=== PATIENT | male | born 1935 | race Caucasian/White ===

== ENCOUNTER 2018-01-26 12:41 | Emergency (ER) | payer OTHER ==
[~2018-01-26] VITALS: Ht 167.6 cm; Wt 52.2 kg
--- NOTE | ~2018-01-26 | EKG ---
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
[2018-01-26 13:54] LABS: URINE BILIRUBIN NEGATIVE (Negative); URINE BLOOD NEGATIVE (Negative); URINE CLARITY CLEAR; URINE COLOR YELLOW; URINE GLUCOSE-RANDOM* NEGATIVE (Negative); URINE KETONES NEGATIVE (Negative); URINE LEUKOCYTES-REFLEX 2+ (Negative); URINE NITRITE-REFLEX NEGATIVE (Negative); URINE PROTEIN (DIPSTICK) 1+ (Negative); URINE UROBILINOGEN 0.2 E.U./dl (0.2-1.0)
[2018-01-26 14:15] LABS: SQUAMOUS 0-3 Few /LPF (0-3)
[2018-01-26 14:16] LABS: BACTERIA-REFLEX None Seen /HPF (None Seen); CASTS None Seen /LPF (None Seen); CRYSTALS None Seen /LPF (None Seen); URINE RBC 3-10 Few /HPF (0-2); URINE WBC-REFLEX >25 Many /HPF (0-5); WBC CLUMPS Moderate (None Seen)
[2018-01-26 14:22] LABS: BASOPHILS 0.9 % (0.0-2.0); EOSINOPHILS 2.5 % (0.0-3.0); HEMATOCRIT 32.9 % (42.0-52.0); HEMOGLOBIN 10.9 gm/dL (14.0-18.0); LYMPHOCYTES 7.1 % (24.0-44.0); MCH 28.5 pg (26.0-34.0); MCHC 33.1 g/dL (28.0-37.0); MONOCYTES 10.4 % (1.0-8.0); PLATELET COUNT 210 thou/uL (150-400); POLYS 79.1 % (36.0-66.0); RBC 3.83 mil/uL (4.50-6.00); RDW 18.6 % (10.5-14.5); WBC 8.9 thou/uL (4.0-11.0)
[2018-01-26 14:26] LABS: ANION GAP 7 mmol/L (7-16); BUN 35 mg/dL (7-18); CALCIUM 9.8 mg/dL (8.5-10.1); CHLORIDE 99 mmol/L (98-107); CO2 25 mmol/L (21-32); CREATININE 1.5 mg/dL (0.7-1.3); GLUCOSE 98 mg/dL (74-106); POTASSIUM 4.6 mmol/L (3.5-5.1); SODIUM 131 mmol/L (136-145)
[2018-01-26 14:36] LABS: ALBUMIN 3.6 g/dL (3.4-5.0); LIPASE 124 U/L (73-393); SGOT 29 U/L (15-37); SGPT 28 U/L (30-65); TOTAL BILIRUBIN 0.6 mg/dL (<0.1-1.0); TOTAL PROTEIN 7.8 g/dL (6.4-8.2); TROPONIN-I <0.06 ng/mL (<0.06)
[2018-01-26 14:41] LABS: ANISOCYTOSIS 1+
[2018-01-26 14:42] LABS: POIKILOCYTOSIS SLIGHT
[2018-01-26] MEDS ORDERED: KEFLEX500 M1 PO (16:20)
[2018-01-26 16:53] VITALS: BP 147/74
== END 2018-01-26 17:00 | disposition home or self-care (01) ==
LOC: ER 12:41
PROVIDERS: Physician Assistant
DX: N39.0 Urinary tract infection, site not specified (principal); I48.91 Unspecified atrial fibrillation; R53.1 Weakness; Z88.5 Allergy status to narcotic agent; Z88.8 Allergy status to other drugs, medicaments and biological substances

== ENCOUNTER 2018-02-23 11:17 | Inpatient (IN) | payer OTHER ==
[~2018-02-23] VITALS: Ht 177.8 cm; Wt 68.9 kg
--- NOTE | ~2018-02-23 | EKG ---
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
[2018-02-23 11:17] VITALS: BP 130/85
[~2018-02-23 11:17] MED LIST: KEFLEX500 M1 PO
[2018-02-23 11:32] LABS: URINE BILIRUBIN NEGATIVE (Negative); URINE BLOOD NEGATIVE (Negative); URINE CLARITY CLEAR; URINE COLOR YELLOW; URINE GLUCOSE-RANDOM* NEGATIVE (Negative); URINE KETONES NEGATIVE (Negative); URINE LEUKOCYTES TRACE (Negative); URINE NITRITE NEGATIVE (Negative); URINE PROTEIN (DIPSTICK) TRACE (Negative); URINE UROBILINOGEN 0.2 E.U./dl (0.2-1.0)
[2018-02-23 11:47] LABS: ABSOLUTE NEUTROPHILS 7.1 thou/uL (1.4-8.2); BASOPHILS 1.2 % (0.0-2.0); EOSINOPHILS 1.9 % (0.0-3.0); HEMATOCRIT 29.7 % (42.0-52.0); HEMOGLOBIN 9.8 gm/dL (14.0-18.0); LYMPHOCYTES 5.5 % (24.0-44.0); MCH 27.4 pg (26.0-34.0); MCHC 32.9 g/dL (28.0-37.0); MCV 83.4 fL (80.0-100.0); MONOCYTES 8.3 % (1.0-8.0); PLATELET COUNT 238 thou/uL (150-400); POLYS 83.1 % (36.0-66.0); RBC 3.57 mil/uL (4.50-6.00); RDW 18.2 % (10.5-14.5); WBC 8.6 thou/uL (4.0-11.0)
[2018-02-23 11:55] LABS: ANION GAP 12 mmol/L (7-16); BUN 42 mg/dL (7-18); CALCIUM 9.1 mg/dL (8.5-10.1); CHLORIDE 98 mmol/L (98-107); CO2 21 mmol/L (21-32); CREATININE 1.7 mg/dL (0.7-1.3); GLUCOSE 93 mg/dL (74-106); POTASSIUM 3.9 mmol/L (3.5-5.1); SODIUM 131 mmol/L (136-145)
[2018-02-23 12:03] LABS: ALBUMIN 3.2 g/dL (3.4-5.0); SGOT 27 U/L (15-37); SGPT 33 U/L (30-65); TOTAL BILIRUBIN 0.4 mg/dL (<0.1-1.0); TOTAL PROTEIN 7.1 g/dL (6.4-8.2); TROPONIN-I <0.06 ng/mL (<0.06)
[2018-02-23 12:20] LABS: ANISOCYTOSIS 2+; OVALOCYTES FEW
[2018-02-23 14:39] VITALS: BP 150/73
[2018-02-23] MEDS ORDERED: FLOMAX0.4 MG PO (15:05)
[2018-02-23] MEDS ORDERED: SPIRONOLACTONE25 M1 PO (15:05)
[2018-02-23] MEDS ORDERED: HYDROXYZINE HCL10 M1 PO (15:05)
[2018-02-23] MEDS ORDERED: AMLODIPINE BESY10 MG PO (15:06)
[2018-02-23] MEDS ORDERED: SYNTHROID75 MCG PO (15:06)
[2018-02-23] MEDS ORDERED: PROSCAR 5MG TABL5 MG PO (15:07)
[2018-02-23] MEDS ORDERED: LASIX 80 MG TAB80 MG PO (15:07)
[2018-02-23] MEDS ORDERED: HYDRALAZINE 5050 MG PO (15:09)
[2018-02-23] MEDS ORDERED: COLACE100 MG PO (15:10)
[2018-02-23] MEDS ORDERED: IRON325 PO (15:10)
[2018-02-23 15:16] VITALS: BP 150/73
[2018-02-23] MEDS ORDERED: MAGOX 400400 MG PO (15:16)
[2018-02-23] MEDS ORDERED: PROTONIX40 M1 PO (15:16)
[2018-02-23 15:30] VITALS: BP 167/70
[2018-02-23] MEDS ORDERED: PROZAC 20 MG20 MG PO (16:37)
[2018-02-23 19:58] VITALS: BP 159/72
[2018-02-24 04:49] VITALS: BP 160/68
[2018-02-24 07:50] VITALS: BP 149/64
[2018-02-24 10:00] LABS: CALCIUM 9.4 mg/dL (8.5-10.1); CREATININE 1.6 mg/dL (0.7-1.3); POTASSIUM 4.6 mmol/L (3.5-5.1)
== END 2018-02-24 16:26 | DRG 682 ==
LOC: ER 11:17 → 4E 14:33 → EROBS 14:33 → 4E 15:18
PROVIDERS: Family Medicine; Physician Assistant
DX: N17.9 Acute kidney failure, unspecified (principal); G93.41 Metabolic encephalopathy; N39.0 Urinary tract infection, site not specified; E87.1 Hypo-osmolality and hyponatremia; E46 Unspecified protein-calorie malnutrition; I13.0 Hypertensive heart and chronic kidney disease with heart failure and stage 1 through stage 4 chronic kidney disease, or unspecified chronic kidney disease; I48.91 Unspecified atrial fibrillation; F32.9 Major depressive disorder, single episode, unspecified; N18.9 Chronic kidney disease, unspecified; M19.90 Unspecified osteoarthritis, unspecified site; D64.9 Anemia, unspecified; I50.9 Heart failure, unspecified; Z96.652 Presence of left artificial knee joint; Z96.643 Presence of artificial hip joint, bilateral; Z68.21 Body mass index [BMI] 21.0-21.9, adult; Z88.6 Allergy status to analgesic agent; Z88.8 Allergy status to other drugs, medicaments and biological substances; Z86.73 Personal history of transient ischemic attack (TIA), and cerebral infarction without residual deficits; Z87.01 Personal history of pneumonia (recurrent)
CPT/HCPCS: 10183

== ENCOUNTER 2018-02-24 11:15 | Inpatient (IN) | payer OTHER ==
[~2018-02-24] VITALS: Ht 182.9 cm; Wt 64.5 kg
--- NOTE | ~2018-02-24 | PLAN ---
[facility] [place] [address] REHAB UNIT PLAN OF CARE Name: SUNG BELL Room #: 509-P ADM IN M.R.#: [id number] Admission: 02/24/18 Attend Phys: Aron Westfall MD Discharge: Date of : 36 Report #: [id number] THIS REPORT FOR: //name// CC: Aron Westfall [facility] physician/PCP DATE OF SERVICE: 02/26/2018 PROGRESS NOTE/OVERALL PLAN OF CARE SUBJECTIVE: The patient is seen back today in followup. He had some problems with being more agitated yesterday morning and was more lethargic. He was given some IV fluids and had modification to his medication regimen with holding the diuretics, decreasing his Lasix dose, stopping the hydroxyzine 10 mg and changing to 5 mg as needed. The patient did miss some therapy yesterday on 02/25/2018 secondary to his episode of agitation. This morning, he is doing better. No obvious distress. Last recorded temperature 98.4, pulse 46, respirations 18, blood pressure 145/73. Facies appeared symmetric. Transfers are min assist. He is ambulating 50 feet mod assist with a front-wheeled walker. He has mild comprehensive deficits, speech therapy. He does have moderate cognitive deficits with xfolpybc-pc-yitwlg memory deficits. ASSESSMENT: 1. Metabolic encephalopathy. 2. Gait instability. 3. Acute renal failure. 4. Bradycardia. 5. Recent urinary tract infection, now resolved. 6. History of congestive heart failure. 7. History of hemorrhagic cerebrovascular accident, July 2017. 8. Hyponatremia. 9. Protein-calorie malnutrition. 10. Degenerative arthritis. PLAN: The overall plan of care is based on the preadmission screen, post-admission physician evaluation and information garnered from therapy assessments. 1. Estimated length of stay is going to be probably at least 7-14 days. 2. Medical prognosis is reasonably good. 3. Anticipated interventions includes the interdisciplinary acute inpatient rehabilitation program with PT, OT and speech, rehabilitation nursing assisting regarding medication management, skin care prophylaxis, bowel and bladder issues and nursing education. The healthcare network consultant physician/primary physician is involved as well as the interdisciplinary rehabilitation team. 4. Anticipated functional outcomes would be for the patient to become modified independent with transfers, mobility, ADLs, cognition, [place], [place] [address] REHAB UNIT PLAN OF CARE Name: SUNG BELL Room #: 509-P [facility] IN .R.#: [id number] Admission: 02/24/18 Attend Phys: Aron Westfall MD Discharge: Date of : 36 Report #: [id number] that he can hopefully return back to his prior living situation. 5. Discharge destination is back to the home setting where he lives with his . 6. Expected therapy by discipline includes PT, OT and speech 1 hour per day each five days a week throughout the duration of the acute inpatient rehabilitation stay. <ELECTRONICALLY SIGNED> By: Aron Westfall MD 02/26/18 1653 0844 1201 Aron Westfall MD /SIXTO
--- NOTE | ~2018-02-24 | H ---
[facility] [place] [address] HISTORY AND PHYSICAL Name: SUNG BELL Room #: 509-P ADM IN M.R.#: [id number] Admission: 02/24/18 Attend Phys: Aron Westfall MD Discharge: Date of : 36 Report #: [id number] THIS REPORT FOR: //name// CC: Aron Westfall [facility] physician/PCP DATE OF SERVICE: 02/24/2018 HISTORY OF PRESENT ILLNESS: This is an 82-year-old gentleman who presented to the Emergency Department with his for altered mental status and inability to ambulate from chair along with associated weakness. He was found to have acute on chronic kidney disease, recurrent UTI, encephalopathy, metabolic. He was evaluated by Therapy and recommendations for continued rehabilitation, for which he has now been admitted to acute inpatient rehabilitation for further functional mobility improvements prior to returning back home with his . This morning, the patient again had an episode of being unable to wake up in the morning and very lethargic. He seemed aggravated with staff attempts to arouse, and he did become argumentative and aggressive towards staff once he did wake up. He was given an IV fluid bolus later this morning, for which he responded well and was much more awake and alert after the bolus. He denies pain, shortness of air, cough, nausea or constipation. PAST MEDICAL HISTORY: Hemorrhagic CVA in 07/2017 at [facility]. After his stroke, he was at another inpatient rehab, then skilled facility. He was back in the hospital after that with a CHF exacerbation, respiratory failure. He was at home for one month prior to this hospital stay. History of a right lower extremity vascular procedure, left knee replacement, bilateral hip replacements, degenerative joint disease, history of AFib, kyphoplasty in 01/2018. Hypertension, depression, pneumonia. HABITS: Nonsmoker, no drug use, no alcohol use. SOCIAL HISTORY: He lives at home, lives in a house with his . 2 entry stairs, 0 stairs once inside. Utilizes a front wheel walker in the home. He does have a lift chair at home. Premorbidly, he was independent for ADLs. His assists with setup and when needs help. His provides all the IADLs in the home, and she does the driving. She works 3 days a week, and he is at home alone during that time. He has a high fear of falling and does very little when he has no supervision, he reports. ALLERGIES: MORPHINE, CODEINE, HYDROCODONE, SIMVASTATIN. MEDICATIONS: Lasix 80 mg daily, hydroxyzine 10 mg t.i.d. p.r.n., Aldactone 25 mg daily, Prozac 20 mg daily, finasteride 5 mg daily, Colace 100 mg daily, Norvasc 10 mg daily, Protonix 40 mg daily, Synthroid 75 mcg daily, hydralazine [address] [address] HISTORY AND PHYSICAL Name: SUNG BELL Room #: 509-P [facility] IN M.R.#: [id number] Admission: 02/24/18 Attend Phys: Aron Westfall MD Discharge: Date of : 36 Report #: [id number] 50 mg t.i.d., Flomax 0.4 mg at bedtime, iron 325 twice a day, senna 1 mg daily as needed, milk of mag daily as needed, bisacodyl suppositories daily as needed. REVIEW OF SYSTEMS: Remainder of his 12-point review of systems is negative except as listed in HPI. PHYSICAL EXAMINATION: VITAL SIGNS: Blood pressure 164/76, pulse of 44, temperature 98.1, respirations 18, 96% oxygen sat on room air. GENERAL: When I first visited this morning, he was asleep, not waking to verbal or tactile stimuli. Approximately one hour later, I reexamined. The patient was awake. He is oriented to person. He is confused on date and situation. He was cooperative with my exam and follow direction inappropriately. HEENT: Head is normocephalic. Eyes: EOMs are intact. LUNGS: Clear to auscultation. No crackle, no wheeze. CARDIOVASCULAR: S1, S2. ABDOMEN: Bowel sounds are positive. Soft, nontender, nondistended. GENITOURINARY: Deferred. EXTREMITIES: No edema. He has an old healed scar to the right lower extremity from a previous vascular surgery. Functional range of motion in bilateral upper and lower extremities. He has good optical laboratory mechanic strength bilaterally. He does have some significant arthritic changes in bilateral hands, left worse than right. No pronator drift. No clonus. Able to lift lower extremities both antigravity. Negative Homans sign. Sit to stand, mod assist, max assist to ambulate 75 feet with a walker. Bed mobility, min assist, toilet transfers, mod assist. Mod assist for lower extremity dressing. NEUROLOGIC: Mild to moderate cognitive deficits, moderate memory deficits, mild expression and comprehension deficits. SKIN: Dry all over, some flushing in his cheeks. LABORATORY DATA: EKG from 02/25 shows AFib with a right bundle branch block, heart rate 44. Blood cultures from today negative. 02/25, WBC 7.9, hemoglobin 10.12, hematocrit 29.9, platelets 227. Sodium 130, potassium 4.3, BUN 30, creatinine 1.5, glucose 84, calcium 9.2. ASSESSMENT: 1. Metabolic encephalopathy. 2. Gait instability. 3. Acute renal failure. 4. Bradycardia. 5. Recent urinary tract infection, now resolved. 6. History of congestive heart failure. 7. History of hemorrhagic cerebrovascular accident, 07/2017. 8. Hyponatremia. 9. Protein calorie malnutrition. 10. Degenerative joint disease. [facility] [address] [place] [address] HISTORY AND PHYSICAL Name: SUNG BELL Room #: 509-P [facility] IN [facility]#: [id number] Admission: 02/24/18 Attend Phys: Aron Westfall MD Discharge: Date of : 36 Report #: [id number] The patient has been admitted to inpatient rehab for physical, occupational and speech therapies. His mentation seems to be waxing and waning. I wonder if he has an underlying component of dementia that has not been diagnosed at this time. does seem in denial to his cognitive deficits. I called and discussed with his primary, Dr. Hayden. PLAN OF CARE: I recommend stopping the 10 mg hydroxyzine and changing to 5 mg at bedtime as needed, also to hold his diuretics for today and lower his Lasix dose from 80 to 40 mg. Repeat BMP in the morning. He does have significant bradycardia. Cardiology consult may be warranted soon. We will defer to primary recommendations with consideration for possible pacemaker in the future. He will also have a neuropsychology testing done while he is here. By: 1453 1549 GLORIA Esquivel /nt
--- NOTE | ~2018-02-24 | EKG ---
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 : 1935 Requested By: Odalys Gar Order Number: [id number] MD: Jluis Norwood Measurements Intervals [place] Rate: 44 P: DC: QRS: 40 QRSD: 167 T: 0 QT: 571 QTc: 489 Interpretive Statements Atrial fibrillation Right bundle branch block Compared to ECG 02/23/2018 11:52:34 No significant changes Electronically Signed On 02-25-2018 16:55:29 CDT by Jluis Norwood [email or web address] <ELECTRONICALLY SIGNED> By: Jluis Norwood MD, [facility] 02/25/18 1655 1141 1141 Jluis Norwood MD, [facility] /EPI
--- NOTE | ~2018-02-24 | H ---
[facility] [place] [address] HISTORY AND PHYSICAL Name: ARABELLASUNG Alejandra Room #: 509-P ADM IN M.R.#: [id number] Admission: 02/24/18 Attend Phys: Aron Westfall MD Discharge: Date of : 36 Report #: [id number] THIS REPORT FOR: //name// CC: Aron Westfall [facility] physician/PCP DATE OF SERVICE: 02/24/2018 HISTORY AND PHYSICAL/POSTADMISSION PHYSICIAN EVALUATION HISTORY OF PRESENT ILLNESS: The patient is an 82-year-old male originally admitted to [facility] for acute confusion, was thought to have had a suspected UTI. He has a complicated history. He had a prior hemorrhagic CVA in 07/2017, treated at [facility]. Premorbid front-wheeled walker ambulator with a lift chair. He is admitted for acute in-hospital inpatient rehabilitation with metabolic encephalopathy. This morning, he was noted to be more somnolent and changes have been made to his hydroxyzine dosing as well as decreasing his Lasix. He also was noted to have some bradycardia, currently being monitored with his primary care physician involved, Dr. Hayden. Please see the history and physical dictation as per Odalys Gar, nurse practitioner. I agree with the above. PAST MEDICAL HISTORY: See Odalys Gar's note. SOCIAL HISTORY: He lives in a house with his . Otherwise, see Odalys Gar's note. HABITS: Nonsmoker. No history of alcohol abuse. Otherwise, see Odalys Gar's note. ALLERGIES: CODEINE, HYDROCODONE, MORPHINE, AND SIMVASTATIN. Otherwise, see Odalys Gar's note. REVIEW OF SYSTEMS: He was somnolent earlier, but had no specific complaints of chest pain, shortness of breath, or abdominal discomfort. PHYSICAL EXAMINATION: GENERAL: An 82-year-old white male, in no obvious distress. VITAL SIGNS: Last recorded temperature 98.1, pulse 44, respirations 18, blood pressure 164/76. Follows basic commands. Needs cues. Some latency to his responses. CHEST: Sounded clear. CARDIOVASCULAR: Slowed rate. ABDOMEN: Bowel sounds positive, nontender. GENITOURINARY AND RECTAL: Deferred. EXTREMITIES: Functional range of motion of the upper and lower extremities. [address] [address] HISTORY AND PHYSICAL Name: SUNG BELL Ny Room #: 509-P [facility] IN ..#: [id number] Admission: 02/24/18 Attend Phys: Aron Westfall MD Discharge: Date of : 36 Report #: [id number] Strength is 4-/5. He is needing assistance with basic functional mobility, although he was again rather sleepy this morning. MEDICATIONS: Please see the full medication listing. This includes vitamins, herbals, and supplements. ASSESSMENT: 1. Metabolic encephalopathy. 2. Dehydration with IV fluids starting. 3. Bradycardia, being monitored. 4. Acute renal insufficiency. 5. Gait instability. 6. Hyponatremia. 7. History of a hemorrhagic cerebrovascular accident in 2017. 8. Recent urinary tract infection. 9. Protein-calorie malnutrition. 10. Congestive heart failure. 11. Degenerative joint disease. PLAN: The patient is admitted for acute in-hospital inpatient rehabilitation. From a postadmission physician evaluation perspective, there are no relevant changes since the preadmission screening. Please see the above review of current and prior medical and functional conditions and comorbidities. Please see the patient's previous and current functional status. As far as risk of complications, the patient has multiple medical comorbidities as noted above. Initial plan of care involves the interdisciplinary acute inpatient rehabilitation program with the goal of maximizing the patient's functional independence, so that he can hopefully return back to his prior living situation. Measurable functional goals would be for the patient to become modified independent with transfers, mobility, and ADLs, so he can return back to his home setting. Prognosis is reasonably good with estimated length of stay probably at least 7-14 days. Potential barriers would include his multiple medical comorbidities and decreased functional status. The patient meets diagnostic criteria for an acute in-hospital inpatient rehabilitation stay. He meets the medical necessity criteria and his primary care physician is monitoring while he is on the rehab unit. He does have the tolerance for therapies and has appropriate discharge goals back to the home setting. <ELECTRONICALLY SIGNED> By: Aron Westfall MD 02/26/18 1653 1436 1518 Aron Westfall MD /nt
--- NOTE | ~2018-02-24 | HC ---
[facility] [place] [address] CONSULTATION Name: SUNG BELL Room #: 509-P [facility] IN M.R.#: [id number] Admission: 02/24/18 Attend Phys: Aron Westfall MD Discharge: 03/06/18 Date of : 36 Report #: [id number] THIS REPORT FOR: //name// CC: Aron Westfall [facility] physician/PCP DATE OF SERVICE: 02/27/2018 NEUROBEHAVIORAL STATUS EXAMINATION ATTENDING PHYSICIAN: Aron Westfall MD SECURITY ALARM TECHNICIAN: Matthew Allen, PhD CLINICAL PRESENTATION: The patient is an 82-year-old male admitted to [facility] with acute confusion, thought to be related to a UTI. The patient had a hemorrhagic stroke in 07/2017 and was treated at [facility]. Prior to this admission, he was utilizing a front-wheeled walker with a lift chair. The diagnosis on admission to the hospital was metabolic encephalopathy. The assessment to rehab also includes dehydration with IV fluids starting, bradycardia, acute renal insufficiency, gait instability, hyponatremia, history of hemorrhagic stroke in 2017, recent urinary tract infection, protein-calorie malnutrition, congestive heart failure and degenerative joint disease. A complete description of his medical condition and history along with medications can be found in his medical record. Neuropsychological consultation was requested to provide assistance in the assessment of cognitive and emotional status and to provide recommendations and services. Prior to this most recent admission, he was living with his in their home. This is his second marriage. He reports having had 3 biological children from whom he is estranged. He has 2 stepchildren from his and a good relationship with them is reported. 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 He is a high school graduate. TECHNIQUES UTILIZED: Clinical interview, review of medical records, staff consultation and behavioral observation, mini mental status exam 2 standard version, clock drawing, verbal fluency assessment and brief abstract reasoning assessment. EXAMINATION FINDINGS: The patient was alert and cooperative with the assessment. There is no evidence of aphasia. His verbal expression is articulate and within normal limits. The patient does not report auditory or visual hallucinations. Symptoms reported include depression, anxiety, sleep disturbance and decreased appetite. Variability in memory is also reported. The patient denies current use of alcohol, cannabis or tobacco. He discontinued [facility] [address] [place] [address] CONSULTATION Name: SUNG BELL Ny Room #: 509-P [facility] IN ..#: [id number] Admission: 02/24/18 Attend Phys: Aron Westfall MD Discharge: 03/06/18 Date of : 36 Report #: [id number] tobacco about 5-6 years ago. Subjective anxiety and depression are reported. His performance on the MMSE 2 brief version is within normal limits with a raw score of 14-16. However, the patient did often looked at the orientation board to assist his performance. His performance on the MMSE 2 standard version is within normal limits with a raw score of 27 of 30. He was 5/5 for serial sevens, 2/2 for naming, 3/3 for auditory comprehension. He could read and follow single command and write a sentence. The patient was unable to accurately copy a simple geometric design. Clock drawing was generally correct. However, the numbers written in the clock had zeros after them to indicate the specific hour. He does have the hand set at the correct time. Performance in letter fluency is in the borderline range with a raw score of 4, T score of 31, percentile rank of 3. Category fluency is estimated to be in the average range with the raw score of 13 and a T score of 46. Brief abstract reasoning test suggest mild deficits in executive functioning with a raw score of 4 of 8. 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 Unspecified anxiety disorder with depression. RECOMMENDATIONS: Continued psychological counseling to assist in adjustment. The use of relaxation techniques will be of benefit along with verbal praise and complements about participation in therapies. Family counseling may be helpful to provide assistance with his in problem solving and managing current environmental demands. Thank you very much for allowing me to provide the consultation on this patient. <ELECTRONICALLY SIGNED> By: Matthew Allen, PhD 03/06/18 1506 1448 2252 Matthew Allen, PhD /nt
[~2018-02-24 11:15] MED LIST changes: +AMLODIPINE BESY10 MG PO; +COLACE100 MG PO; +FLOMAX0.4 MG PO; +HYDRALAZINE 5050 MG PO; +HYDROXYZINE HCL10 M1 PO; +IRON325 PO; +LASIX 80 MG TAB80 MG PO; +MAGOX 400400 MG PO; +PROSCAR 5MG TABL5 MG PO; +PROTONIX40 M1 PO; +PROZAC 20 MG20 MG PO; +SPIRONOLACTONE25 M1 PO; +SYNTHROID75 MCG PO
[2018-02-24 17:00] VITALS: BP 160/75
[2018-02-24 19:40] VITALS: BP 144/72
[2018-02-25 03:51] LABS: HEMATOCRIT 29.9 % (42.0-52.0); HEMOGLOBIN 10.2 gm/dL (14.0-18.0); MCH 28.4 pg (26.0-34.0); MCHC 34.3 g/dL (28.0-37.0); MCV 82.9 fL (80.0-100.0); RBC 3.6 mil/uL (4.50-6.00); RDW 18.2 % (10.5-14.5); WBC 7.9 thou/uL (4.0-11.0)
[2018-02-25 03:56] LABS: CALCIUM 9.2 mg/dL (8.5-10.1); CREATININE 1.5 mg/dL (0.7-1.3); POTASSIUM 4.3 mmol/L (3.5-5.1)
[2018-02-25 06:26] VITALS: BP 164/76
[2018-02-25 21:24] VITALS: BP 145/73
[2018-02-26 06:40] LABS: CALCIUM 9.3 mg/dL (8.5-10.1); CREATININE 1.6 mg/dL (0.7-1.3); MAGNESIUM 1.7 mg/dL (1.8-2.4); POTASSIUM 4.3 mmol/L (3.5-5.1)
[2018-02-26 08:20] VITALS: BP 151/64
[2018-02-26 20:30] VITALS: BP 158/69
[2018-02-27 06:32] VITALS: BP 155/58
[2018-02-27 08:00] VITALS: BP 146/56
[2018-02-27 14:15] VITALS: BP 143/54
[2018-02-27 19:28] VITALS: BP 147/55
[2018-02-28 06:20] VITALS: BP 153/62
[2018-02-28 08:00] VITALS: BP 148/59
[2018-02-28 19:05] VITALS: BP 135/67
[2018-03-01 06:16] VITALS: BP 146/60
[2018-03-01 08:41] VITALS: BP 151/70
[2018-03-01 20:27] VITALS: BP 135/61
[2018-03-02 06:11] VITALS: BP 151/74
[2018-03-02 07:15] VITALS: BP 143/69
[2018-03-02 22:15] VITALS: BP 134/64
[2018-03-03 03:33] LABS: CALCIUM 9.1 mg/dL (8.5-10.1); CREATININE 1.8 mg/dL (0.7-1.3); MAGNESIUM 1.7 mg/dL (1.8-2.4); POTASSIUM 4.1 mmol/L (3.5-5.1)
[2018-03-03 08:30] VITALS: BP 162/73
[2018-03-03 13:20] VITALS: BP 155/73
[2018-03-03 20:40] VITALS: BP 151/70
[2018-03-04 07:25] VITALS: BP 130/58
[2018-03-04 14:24] LABS: URINE BILIRUBIN NEGATIVE (Negative); URINE BLOOD NEGATIVE (Negative); URINE CLARITY CLEAR; URINE COLOR YELLOW; URINE GLUCOSE-RANDOM* NEGATIVE (Negative); URINE KETONES NEGATIVE (Negative); URINE NITRITE-REFLEX NEGATIVE (Negative); URINE PROTEIN (DIPSTICK) NEGATIVE (Negative); URINE SPECIFIC GRAVITY <= 1.005 (1.005-1.035); URINE UROBILINOGEN 0.2 E.U./dl (0.2-1.0)
[2018-03-04 14:25] LABS: URINE LEUKOCYTES-REFLEX 1+ (Negative)
[2018-03-04 14:34] LABS: BACTERIA-REFLEX None Seen /HPF (None Seen); CASTS None Seen /LPF (None Seen); CRYSTALS None Seen /LPF (None Seen); MUCUS 0-3 Light strn/LPF (None Seen); SQUAMOUS None Seen /LPF (0-3); URINE RBC None Seen /HPF (0-2); URINE WBC-REFLEX 6-15 Few /HPF (0-5); WBC CLUMPS Occasional (None Seen)
[2018-03-04 20:14] VITALS: BP 148/67
[2018-03-05 06:18] VITALS: BP 149/62
[2018-03-05 07:32] VITALS: BP 139/58
[2018-03-05 11:18] LABS: CALCIUM 9.4 mg/dL (8.5-10.1); CREATININE 1.9 mg/dL (0.7-1.3); MAGNESIUM 1.8 mg/dL (1.8-2.4); POTASSIUM 4.1 mmol/L (3.5-5.1)
[2018-03-05 19:41] VITALS: BP 148/59
[2018-03-06 05:50] VITALS: BP 137/70
[2018-03-06 07:57] VITALS: BP 147/63
[2018-03-06] MEDS ORDERED: LASIX 40 MG TAB40 M1 PO (08:59)
[2018-03-06 10:21] VITALS: BP 147/63
== END 2018-03-06 11:05 | disposition home health service (06) | DRG 71 ==
PROVIDERS: Family Medicine; Nurse Practitioner Family; Physical Medicine & Rehabilitation
DX: G93.41 Metabolic encephalopathy (principal); N17.9 Acute kidney failure, unspecified; E87.1 Hypo-osmolality and hyponatremia; E46 Unspecified protein-calorie malnutrition; I13.0 Hypertensive heart and chronic kidney disease with heart failure and stage 1 through stage 4 chronic kidney disease, or unspecified chronic kidney disease; Z68.1 Body mass index [BMI] 19.9 or less, adult; N39.0 Urinary tract infection, site not specified; R26.9 Unspecified abnormalities of gait and mobility; R00.1 Bradycardia, unspecified; I50.9 Heart failure, unspecified; M19.90 Unspecified osteoarthritis, unspecified site; E86.0 Dehydration; G31.84 Mild cognitive impairment of uncertain or unknown etiology; F41.8 Other specified anxiety disorders; N18.9 Chronic kidney disease, unspecified; Z96.652 Presence of left artificial knee joint; Z96.643 Presence of artificial hip joint, bilateral; I48.91 Unspecified atrial fibrillation; D63.8 Anemia in other chronic diseases classified elsewhere; D50.9 Iron deficiency anemia, unspecified; K21.9 Gastro-esophageal reflux disease without esophagitis; E03.9 Hypothyroidism, unspecified; R53.81 Other malaise; N40.0 Benign prostatic hyperplasia without lower urinary tract symptoms; E83.42 Hypomagnesemia; Z88.8 Allergy status to other drugs, medicaments and biological substances; Z88.6 Allergy status to analgesic agent; Z87.01 Personal history of pneumonia (recurrent); Z86.73 Personal history of transient ischemic attack (TIA), and cerebral infarction without residual deficits
CPT/HCPCS: 10112

== ENCOUNTER → 2018-05-04 | Outpatient (CLI) | payer OTHER ==
[~2018-05-04] MED LIST changes: +LASIX 40 MG TAB40 M1 PO
== END ==
LOC: NUC 09:58
DX: K82.8 Other specified diseases of gallbladder (principal)